=== PATIENT | female | born 1980 | race Caucasian/White ===

== ENCOUNTER 2018-04-18 08:16 | Emergency (ER) | payer SELFPAY ==
[2018-04-18] MEDS ORDERED: Ondansetron INJ* 2 MG/ML VIAL IV ONE (08:41)
[2018-04-18] MEDS ORDERED: NS 0.9% 1000 ML* 2,000 ML IV ONE (08:41)
[2018-04-18] MEDS ORDERED: Morphine INJ* 2 MG/ML 1 ML SYRINGE (TWO MG - NEW SYRINGE VERSION) IV ONE (08:41)
--- NOTE | 2018-04-18 08:59 | ED ---
Abdominal Pain/Female - HPI Summary HPI Summary: This is scribe Gomez Duffy documenting for attending Dr. Guillermo Maurer This patient is a 38 year old F presenting to [facility] with a chief complaint of 8/ 10 abd pain since 04/12/18 (but worse since last 2 days). She endorses N/V, recent travel and stay in [place], chills, and LKMP starting 04/11/18. Pt denies fever, PMHx, Rx, smoking, and substance use. SHx gastric band surgery in 2009. I, Dr. Li personally performed the services described in this documentation as scribed in my presence and it is both accurate and complete. - History of Current Complaint Chief Complaint: EDNauseaVomitDiarrh Stated Complaint: N/V Time Seen by Provider: 04/18/18 08:30 Hx Obtained From: Patient Hx Last Menstrual Period: 04/11/18 Onset/Duration: Gradual Onset, Lasting Weeks, Still Present, Worse Since - 2 days ago (04/16/18) Timing: Constant Severity Initially: Mild Severity Currently: Severe Pain Intensity: 8 Pain Scale Used: 0-10 Numeric Location: Discrete At: RLQ Radiates: No Character: Sharp Aggravating Factor(s): Nothing Alleviating Factor(s): Nothing Associated Signs and Symptoms: Positive: Nausea, Vomiting, Other: - chills. Negative: Fever Allergies/Adverse Reactions: Allergies Allergy/AdvReac Type Severity Reaction Status Date / Time No Known Allergies Allergy Verified 04/18/18 08:23 PMH/Surg Hx/FS Hx/Imm Hx Endocrine/Hematology History: Denies: Hx Sickle Cell Disease Cardiovascular History: Denies: Hx Myocardial Infarction Respiratory History: Denies: Hx Lung Cancer History: Denies: Hx Dialysis Musculoskeletal History: Denies: Hx Rheumatoid Arthritis Sensory History: Denies: Hx Legally Blind, Hx Deafness Opthamlomology History: Denies: Hx Legally Blind EENT History: Denies: Hx Deafness Neurological History: Denies: Hx CVA Psychiatric History: Denies: Hx Schizophrenia - Surgical History Surgery Procedure, Year, and Place: Gastric band 2009 Infectious Disease History: No Infectious Disease History: Denies: Traveled Outside the US in Last 30 Days - Family History Known Family History: Positive: Other - gall bladder disease, cancer - Social History Occupation: Employed Full-time Alcohol Use: Occasionally Hx Substance Use: No Substance Use Type: Reports: None Smoking Status (MU): Never Smoked Tobacco Review of Systems Positive: Chills. Negative: Fever Positive: Abdominal Pain, Vomiting, Nausea Positive: no symptoms reported All Other Systems Reviewed And Are Negative: Yes Physical Exam - Summary Physical Exam Summary: VITAL SIGNS: Reviewed. GENERAL: Patient is an obese female who is lying comfortable in the stretcher. Patient is not in any acute respiratory distress. HEAD AND FACE: No signs of trauma. No ecchymosis, hematomas or skull depressions. No sinus tenderness. EYES: PERRLA, EOMI x 2, No injected conjunctiva, no nystagmus. EARS: Hearing grossly intact. Ear canals and tympanic membranes are within normal limits. MOUTH: Oropharynx within normal limits. Dry oral mucosa NECK: Supple, trachea is midline, no adenopathy, no JVD, no carotid bruit, no c- spine tenderness, neck with full ROM. CHEST: Symmetric, no tenderness at palpation LUNGS: Clear to auscultation bilaterally. No wheezing or crackles. CVS: Regular rate and rhythm, S1 and S2 present, no murmurs or gallops appreciated. ABDOMEN: Soft, RLQ tenderness. No signs of distention. No rebound no guarding, and no masses palpated. Bowel sounds are normal. EXTREMITIES: FROM in all major joints, no edema, no cyanosis or clubbing. NEURO: Alert and oriented x 3. No acute neurological deficits. Speech is normal and follows commands. SKIN: Dry and warm, increased turgor Triage Information Reviewed: Yes Vital Signs On Initial Exam: Initial Vitals Temp Pulse Resp BP Pulse Ox 97.7 F 84 18 132/85 100 04/18/18 08:17 04/18/18 08:17 04/18/18 08:17 04/18/18 08:17 04/18/18 08:17 Vital Signs Reviewed: Yes Diagnostics - Vital Signs Vital Signs Temp Pulse Resp BP Pulse Ox 04/18/18 08:52 16 04/18/18 08:17 97.7 F 84 18 132/85 100 - Laboratory Result Diagrams: 04/18/18 08:46 04/18/18 08:46 Lab Statement: Any lab studies that have been ordered have been reviewed, and results considered in the medical decision making process. - CT A/P CT Interpretation: No Acute Changes CT Interpretation Completed By: Radiologist - NO ACUTE CT FINDINGS. NO MASS OR INFLAMMATORY CHANGES. GASTRIC LAP BANDING. Dr. Li has reviewed this report. - EKG 0847 Cardiac Rate: Bradycardia - 57 ST Segment: Normal Ectopy: None EKG Interpretation: No STEMI, nl axis Abdominal Pain Fem Course/Dx - Course Course Of Treatment: Dr. Boland released some pressure from lap band, thinks pt needs endoscopy, but since patient lives in [place], pt prefers to do the workup there. This patient is a 38-year-old female who presents to the emergency department with a chief complaint of having abdominal pain along with nausea and vomiting. Patient reports that she is unable to keep anything PO. And blood test results without any significant abnormality except for hemoglobin 8.3 hematocrit 27 and MCV 61 consistent with a hypochromic microcytic anemia. The potassium level is 3.0 and magnesium 1.7. Patient was given potassium chloride and magnesium by mouth. At this time the patient is able to tolerate by mouth. The pain has subsided. The patient was given IV fluids, Zofran and Reglan for the nausea and vomiting. She was given morphine for the pain. Abdominopelvic CT impression: No acute intra-abdominal pathology. Positive gastric lap banding. Patient reports the nausea hasnt significantly improved. I discussed the case with Dr. Boland from surgery and he came and examined the patient. He reports that he decreased the tension on the gastric lap band and the patient is feeling better. He recommends to get a endoscopy however the patient is from [place] and she wants to go back tomorrow. Therefore she reports that she will follow-up with her surgeon for follow-up visit and possibly an endoscopy. Patient will be given a prescription for Reglan and the follow-up with her surgeon. Patient is hemodynamically stable alert and 3. - Diagnoses Provider Diagnoses: Nausea & vomiting, Abdominal pain - Provider Notifications Discussed Care Of Patient With: Eduard Boland Time Discussed With Above Provider: 14:15 Instructed by Provider To: Other - Will see pt in ED. update 1515. Dr boland released some pressure from lap band, thinks pt needs endoscopy, but since patient lives in [place], pt prefers to do the workup there. Discharge - Sign-Out/Discharge Documenting (check all that apply): Patient Departure - discharge - Discharge Plan Condition: Stable Disposition: HOME Prescriptions: Metoclopramide TAB* [Reglan TAB*] 10 mg PO Q8H #15 tab Patient Education Materials: Acute Nausea and Vomiting (ED), Abdominal Pain (ED ) Referrals: [facility] [Provider Group] - 3 Days Additional Instructions: Return to the emergency department for any new or worsening symptoms. Attestations User Type: Provider - I, Dr. Li personally performed the services described in this documentation as scribed in my presence and it is both accurate and complete.
[2018-04-18 09:19] LABS: EGFR Non-African American 94.7 (>60)
[2018-04-18 09:30] LABS: Urine Appearance Clear; Urine Blood 1+ (Negative); Urine Color Yellow; Urine Ketones Negative (Negative); Urine Protein Negative (Negative); Urine Red Blood Cell Trace(0-2/hpf) (Absent); Urine Specific Gravity 1.003 (1.010-1.030); Urine Urobilinogen Negative (Negative); Urine White Blood Cell Trace(0-5/hpf) (Absent)
[2018-04-18] MEDS ORDERED: Metoclopramide IV* 5 MG/ML 2 ML VIAL IV ONE (09:32)
[2018-04-18] MEDS ORDERED: Morphine VIAL* 10 MG/ML 1 ML VIAL IV ONE (09:32)
[2018-04-18 09:33] LABS: Hematocrit 27 % (35-47); Hemoglobin 8.3 g/dl (12.0-16.0); Mean Corpuscular HGB Conc 31 g/dl (31-36); Mean Corpuscular Hemoglobin 19 pg (27-31); Mean Corpuscular Volume 61 fL (80-97); Mean Platelet Volume 8.3 um3 (7.4-10.4); Platelet Count 408 10^3/ul (150-450); Red Blood Count 4.37 10^6/ul (4.00-5.40); Red Cell Distribution Width 18 % (10.5-15); White Blood Count 5.5 10^3/ul (3.5-10.8)
[2018-04-18 10:08] LABS: ABS Basophils 0 10^3/ul (0-0.2); ABS Eosinophils 0.2 10^3/ul (0-0.6); ABS Lymphocytes 1.9 10^3/ul (1.0-4.8); ABS Monocytes 0.5 10^3/ul (0-0.8); ABS Neutrophils 2.8 10^3/ul (1.5-7.7); ABS Nucleated RBC 0 10^3/ul; Eosinophil % 4.1 % (0-6); Lymphocyte % 35.1 % (25-47); Nucleated Red Blood Cells % 0.1
[2018-04-18] MEDS ORDERED: Iohexol 300* (CONTRAST) 10 ML SDV IV ONE (10:58)
--- NOTE | 2018-04-18 11:33 | RAD ---
INDICATION: Abdominal pain. History of bariatric surgery 2009 COMPARISON: None TECHNIQUE: Axial source images were obtained from the hemidiaphragms to the symphysis pubis following administration of oral and intravenous contrast. 107 mL Omnipaque 300 was utilized. Coronal and sagittal reconstructed images were acquired. Lung bases: The lung bases are clear. Liver: The liver is normal in size. There are no masses. There is no ductal dilatation. Gallbladder: There are no calcified gallstones. There is no evidence of wall thickening or pericholecystic fluid. Spleen: The spleen is normal in size. There are no masses. Pancreas: There is no focal pancreatic mass or ductal dilatation. Adrenal glands: There is no evidence of adrenal mass. Kidneys: The kidneys are normal in size and position. There are prompt nephrograms and there is prompt excretion bilaterally. There are no renal parenchymal masses. There is no evidence of nephrolithiasis. Adenopathy: There is no evidence of adenopathy by size criteria. Fluid collections: There are no free or localized fluid collections. Vessels:There are no significant atherosclerotic changes involving the aorta. There is no focal aneurysm. The iliac vessels are normal in caliber. The IVC appears normal. GI tract: There are no acute CT bowel findings. There is gastric lap banding There is no obstruction. The stomach and small bowel appear normal. The lower GI tract is normal. The cecum, ileocecal valve, and terminal ileum appear normal. The appendix not visualized. There is no inflammatory change in the periappendiceal region. Pelvic organs: The uterus and left adnexa are normal. There are prominent vessels in the right adnexal region. This is of indeterminate significance but is believed to represent an incidental finding. The right adnexa is otherwise unremarkable. Bladder: There are no bladder masses. Abdominal and pelvic soft tissues: The extraperitoneal abdominal and pelvic soft tissues appear normal.. Osseous structures: There are no acute osseous findings. Other: None IMPRESSION: NO ACUTE CT FINDINGS. NO MASS OR INFLAMMATORY CHANGES. GASTRIC LAP BANDING.
[2018-04-18] MEDS ORDERED: Magnesium Oxide TAB* 400 MG PO ONE (12:08)
[2018-04-18] MEDS ORDERED: Potassium Chlor TAB* 20 MEQ TAB.ER PO ONE (12:08)
[2018-04-18 15:49] VITALS: BP 101/60
--- NOTE | 2018-04-18 17:42 | CONS ---
CC: Dr. Peck.* SURGICAL CONSULTATION NOTE: DATE OF CONSULT: 04/18/18 LOCATION: This patient was seen in the [facility] Emergency Department on , 03/18/18. ATTENDING PHYSICIAN: Dr. Eduard Peck. CHIEF COMPLAINT: Nausea and abdominal pain. HISTORY OF PRESENT ILLNESS: The patient is a 38-year-old female from [place], who is visiting family here in [place]; she came to the emergency room with persistent nausea, vomiting and abdominal pain. She had a lap gastric band 9 years ago in [place]; she states that 2 years ago when she was , she had nausea and the Lap-Band was emptied and has not been refilled since. For the past 2 years, she has had intermittent nausea and vomiting. She has not had followup because her bariatric surgeon and it has been difficult for her to reestablish bariatric care. She does have a primary care provider in [place]. Six months ago, she had severe abdominal pain and had a workup for gallbladder disease and she reports that the ultrasound and CAT scan were normal. She was treated for what was thought to be C. diff. She reports since she arrived in [place] 1 week ago, she has been persistently nauseated and then on Sunday of this week, she started vomiting and yesterday could not even tolerate ice chips. She reported her abdominal pain mostly in the periumbilical region as 8/10 and occurred with vomiting or dry heaving. Her last bowel movement was on 04/12/18 and was described as diarrhea. She denies any blood or mucus in the stool. She states that in the past, she did have some blood in her vomitus and had a blood transfusion in 2009. She reports acid reflux and takes Tums with some relief and has been trying to manage her diet to control those symptoms. She denies any fever or chills or dysuria. Her last menstrual period started, 04/11/18. In the emergency room, her white blood cell count was 5.5. She was noted to have microcytic anemia with a hemoglobin of 8.3, hematocrit of 27; her potassium was low at 3 and magnesium was low at 1.7. Dr. Peck and Dr. Becker reviewed the CAT scan of the abdomen , which did not reveal any acute findings or any obstruction or no inflammatory changes around the appendix; Dr. Becker commented that she might have a small hiatal hernia, but he did not note any Lap-Band slippage. Dr. Becker recommended intravenous hydration in the emergency room and a trial of clear liquids and then outpatient followup with upper endoscopy. The patient is in agreement with the plan. Dr. Peck also accessed the Lap-Band port and removed approximately 1 mL of fluid. PAST MEDICAL HISTORY: Generally healthy other than previously mentioned acid reflux; she states that she had a "hole in her heart" at , which resolved without surgery. She states that she has had anemia and hypokalemia for the past 9 years since the Lap-Band. PAST SURGICAL HISTORY: Lap gastric banding 9 years ago in [place]. MEDICATIONS: Multivitamin and occasionally iron when she remembers. ALLERGIES: No known drug allergies. FAMILY HISTORY: Parents are alive and well. Her father is diabetic. No known gastrointestinal conditions. SOCIAL HISTORY: She is here visiting her boyfriend who works in [place]; she has 3 children ages 13, 4 and 2; she has never been a smoker. 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 REVIEW OF SYSTEMS: Constitutional: No fevers or chills. She does feel tired most of the time. She has had good weight loss from the gastric banding. She was 330 pounds before the band and currently weighs 170 pounds and her weight has been essentially stable over the past year. Endocrine: No diabetes or thyroid disease. Cardiovascular: No chest pain or palpitations. Respiratory: No dyspnea on exertion. No chronic cough. Gastrointestinal: As described in history of present illness. Genitourinary: No dysuria. No history of kidney stones. Musculoskeletal: No complaints. Neurologic: No history of seizures or concussions. General: No previous anesthesia complications. No history of deep vein thrombosis or pulmonary embolism. PHYSICAL EXAM: General Survey: The patient is a 38-year-old female, well- developed, well-nourished, in no acute distress. Height 67 inches, weight 177 pounds, body mass index 27.7. Blood pressure 132/85, pulse 84 and regular, respiratory rate 18, temperature 97.7 tympanic, O2 saturation on room air 100%. Skin: Warm, dry, intact. HEENT: Benign. Neck: Supple. No cervical lymphadenopathy. Lungs: Breath sounds bilaterally clear and equal. Heart: Regular rate and rhythm. No murmurs or rubs appreciated. Abdomen: Hypoactive bowel sounds. Soft, nondistended. No guarding. No obvious masses. She reports "soreness," but is nontender to deep palpation. There is a palpable Lap -Band port in the epigastric region. Pelvic and rectal exams deferred. Extremities are warm without edema or skin ulceration. Neurologic: Alert and oriented x3. Steady gait. IMPRESSION: Dehydration due to vomiting. PLAN: As discussed with both Dr. Peck and Dr. Becker, the patient will be rehydrated with IV fluids in the emergency department. She will have a trial of clear liquids and if she tolerates the clear liquids, she will be discharged home and she will have a followup in [place] and she plans to go home tomorrow. We recommended followup with an upper endoscopy to rule out any erosive problems such as an ulcer and she will also obtain old records from her previous bariatric surgeon. TIME SPENT: 60 minutes with greater than 50% in [id number] history taking and patient counseling. BRYCE VALERIO NP [id number]/CPS #: [id number] LEAH
== END 2018-04-18 15:48 | disposition home or self-care (01) ==
LOC: ED 08:16
DX: R10.31 Right lower quadrant pain (principal); R11.2 Nausea with vomiting, unspecified; R00.1 Bradycardia, unspecified; Z98.84 Bariatric surgery status; Z80.0 Family history of malignant neoplasm of digestive organs
CPT/HCPCS: 36415; 74177; 80053; 81003; 81015; 82550; 83605; 83690; 83735; 84484; 85025; 85060; 86140; 87086; 93005; 96374; 96375; 96376; 99284; A9270-GY; J2270; J2405; J2765; Q9967

== ENCOUNTER 2018-04-19 06:26 | Inpatient (IN) | payer SELFPAY ==
[2018-04-19] MEDS ORDERED: NS 0.9% 1000 ML* 2,000 ML IV ONE (07:13)
[2018-04-19] MEDS ORDERED: Pantoprazole IV* 40 MG IV ONE (07:13)
[2018-04-19] MEDS ORDERED: Metoclopramide IV* 5 MG/ML 2 ML VIAL IV ONE (07:13)
[2018-04-19] MEDS ORDERED: Morphine INJ* 2 MG/ML 1 ML SYRINGE (TWO MG - NEW SYRINGE VERSION) IV ONE (07:13)
--- NOTE | 2018-04-19 07:25 | ED ---
Abdominal Pain/Female - HPI Summary HPI Summary: This is scribe Gomez Duffy documenting for attending Dr. Guillermo Maurer This patient is a 38 year old F presenting to [facility] with a chief complaint of increasing abd pain for 4 days (since 04/15/18). Pt was in the ED for similar sx yesterday, 04/18/18, and was discharged after having tension released on her gastric band. Pt endorses N/V. Pt took Reglan around 2000 and her N/V resolved and she was OK until the meds wore off by 0000, and her sx worsened. She took another dose of Reglan, slept for 1 hour, and then and was awake for rest of night. Pt denies BM, ability to keep PO down. I, Dr. Li personally performed the services described in this documentation as scribed in my presence and it is both accurate and complete. - History of Current Complaint Chief Complaint: EDAbdPain Stated Complaint: ABD PAIN Time Seen by Provider: 04/19/18 06:51 Hx Obtained From: Patient Hx Last Menstrual Period: 04/11/18 Onset/Duration: Sudden Onset, Lasting Days, Still Present Timing: Constant Severity Initially: Moderate Severity Currently: Severe Pain Intensity: 10 Pain Scale Used: 0-10 Numeric Location: Epigastric Radiates: No Aggravating Factor(s): Nothing Alleviating Factor(s): Medications - Reglan Associated Signs and Symptoms: Positive: Nausea, Vomiting. Negative: Fever, Blood in Stool, Diarrhea Allergies/Adverse Reactions: Allergies Allergy/AdvReac Type Severity Reaction Status Date / Time No Known Allergies Allergy Verified 04/18/18 08:23 Home Medications: Home Medications Multivitamins/Minerals TAB* [Theragran/minerals TAB*] 1 tab PO DAILY 04/19/18 [ History Confirmed 04/19/18] PMH/Surg Hx/FS Hx/Imm Hx Endocrine/Hematology History: Denies: Hx Sickle Cell Disease Cardiovascular History: Denies: Hx Myocardial Infarction Respiratory History: Denies: Hx Lung Cancer GI History: Reports: Hx Ulcer - gastric History: Denies: Hx Dialysis Musculoskeletal History: Denies: Hx Rheumatoid Arthritis Sensory History: Denies: Hx Legally Blind, Hx Deafness, Hx Hearing Aid Opthamlomology History: Denies: Hx Legally Blind EENT History: Denies: Hx Deafness, Hx Hearing Aid Neurological History: Denies: Hx CVA Psychiatric History: Denies: Hx Autism, Hx Schizophrenia - Surgical History Surgery Procedure, Year, and Place: Gastric band 2010 Infectious Disease History: No Infectious Disease History: Denies: Traveled Outside the US in Last 30 Days - Family History Known Family History: Positive: Other - gall bladder disease, cancer - Social History Alcohol Use: Occasionally Hx Substance Use: No Substance Use Type: Reports: None Smoking Status (MU): Never Smoked Tobacco Review of Systems Negative: Fever Positive: Abdominal Pain, Vomiting, Nausea. Negative: Diarrhea Positive: no symptoms reported All Other Systems Reviewed And Are Negative: Yes Physical Exam - Summary Physical Exam Summary: VITAL SIGNS: Reviewed. GENERAL: Patient is a well-developed and nourished female who is lying comfortable in the stretcher. Patient is not in any acute respiratory distress. HEAD AND FACE: No signs of trauma. No ecchymosis, hematomas or skull depressions. No sinus tenderness. EYES: PERRLA, EOMI x 2, No injected conjunctiva, no nystagmus. EARS: Hearing grossly intact. Ear canals and tympanic membranes are within normal limits. MOUTH: Oropharynx within normal limits. Dry oral mucosa NECK: Supple, trachea is midline, no adenopathy, no JVD, no carotid bruit, no c- spine tenderness, neck with full ROM. CHEST: Symmetric, no tenderness at palpation LUNGS: Clear to auscultation bilaterally. No wheezing or crackles. CVS: Regular rate and rhythm, S1 and S2 present, no murmurs or gallops appreciated. ABDOMEN: Soft, tenderness in epigastric area. No signs of distention. No rebound , no guarding, and no masses palpated. Bowel sounds are normal. EXTREMITIES: FROM in all major joints, no edema, no cyanosis or clubbing. NEURO: Alert and oriented x 3. No acute neurological deficits. Speech is normal and follows commands. SKIN: Dry and warm Triage Information Reviewed: Yes Vital Signs On Initial Exam: Initial Vitals Temp Pulse Resp BP Pulse Ox 98.9 F 75 18 134/86 100 04/19/18 06:30 04/19/18 06:30 04/19/18 06:30 04/19/18 06:30 04/19/18 06:30 Vital Signs Reviewed: Yes Diagnostics - Vital Signs Vital Signs Temp Pulse Resp BP Pulse Ox 04/19/18 06:38 94 136/74 100 04/19/18 06:30 98.9 F 75 18 134/86 100 - Laboratory Result Diagrams: 04/21/18 04:56 04/21/18 04:56 Lab Statement: Any lab studies that have been ordered have been reviewed, and results considered in the medical decision making process. Abdominal Pain Fem Course/Dx - Course Course Of Treatment: This patient is a 38-year-old female who presents to the emergency department with a chief complaint of having abdominal pain started with nausea and vomiting. The patient was seen yesterday in the emergency department for the symptoms results, she was treated and felt better. The patient was able to tolerate by mouth here today however today the symptoms worsen. Therefore she decided to come to the emergency department for further workup and management. Patient has history of a gastric lap band and yesterday Dr. Peck remove some fluid from the band and the patient felt better. However he recommended to do an anoscopy to rule out any type of ulcers. Declined rectal exam. Will send occult blood testing when she has a bowel movement. Test results CBC shows an hemoglobin of 7.40 with hematocrit 24 which is less than yesterday. MCV is 62. Sodium is 140, potassium 30, glucose of 105, magnesium 1.8 and urinalysis is negative for UTI. Abdominopelvic CT done yesterday showed no acute intra-abdominal pathology. Today in the ED course and the patient was given IV fluids for rehydration, the patient is given potassium and magnesium for the hypokalemia and hypomagnesemia. The patient also was given morphine for the pain and Reglan for the nausea and vomiting. She continues to have nausea vomiting therefore the patient was given Zofran IV. At this time I consulted with Dr. Gunn from surgery and he recommends for the patient to be admitted to the hospitalist and they will consult. Discussed the case with Dr. Valente who accepted the patient for admission. Patient continues to be hemodynamically stable alert and oriented 3. - Diagnoses Provider Diagnoses: Intractable vomiting, Upper abdominal pain, Anemia - Provider Notifications Discussed Care Of Patient With: Michael Gunn Time Discussed With Above Provider: 11:22 Instructed by Provider To: Other - this pt needs nothing surgical, admission is a matter of rehydrating and controlling N/V. Discharge - Sign-Out/Discharge Documenting (check all that apply): Patient Departure - Discharge Plan Condition: Stable Disposition: ADMITTED TO [facility] - Billing Disposition and Condition Condition: STABLE Disposition: Admitted to [facility] Consult Consult: 1206 Dr. Valente: Accepts admission Attestation Statement User Type: Provider - I, Dr. Li personally performed the services described in this documentation as scribed in my presence and it is both accurate and complete.
[2018-04-19 07:45] LABS: ABS Basophils 0 10^3/ul (0-0.2); ABS Eosinophils 0.2 10^3/ul (0-0.6); ABS Lymphocytes 1.4 10^3/ul (1.0-4.8); ABS Monocytes 0.4 10^3/ul (0-0.8); ABS Neutrophils 2.1 10^3/ul (1.5-7.7); ABS Nucleated RBC 0 10^3/ul; Eosinophil % 4.2 % (0-6); Hematocrit 24 % (35-47); Hemoglobin 7.4 g/dl (12.0-16.0); Lymphocyte % 34.6 % (25-47); Mean Corpuscular HGB Conc 31 g/dl (31-36); Mean Corpuscular Hemoglobin 19 pg (27-31); Mean Corpuscular Volume 62 fL (80-97); Mean Platelet Volume 8.1 um3 (7.4-10.4); Nucleated Red Blood Cells % 0; Platelet Count 341 10^3/ul (150-450); Red Blood Count 3.92 10^6/ul (4.00-5.40); Red Cell Distribution Width 18 % (10.5-15); White Blood Count 4.1 10^3/ul (3.5-10.8)
[2018-04-19 07:59] LABS: EGFR Non-African American 133.4 (>60)
[2018-04-19] MEDS ORDERED: Potassium Chlor TAB* 20 MEQ TAB.ER PO ONE (09:44)
[2018-04-19] MEDS ORDERED: Magnesium Sulfate 1 GM IV* 1 GM/100 ML BAG IV ONE (09:44)
[2018-04-19] MEDS ORDERED: NS 0.9% w/ 20 Meq KCL 1000 ML* 1,000 ML IV SCH (10:00)
[2018-04-19] MEDS ORDERED: Ondansetron ODT TAB* 4 MG PO ONE (10:59)
[2018-04-19] MEDS ORDERED: Ondansetron ODT TAB* 4 MG ONE (11:00)
[2018-04-19] MEDS ORDERED: Magnesium Sulfate 2 GM IV* 2 GM/50 ML BAG IVPB ONE (12:31)
[2018-04-19] MEDS ORDERED: HYDROmorphone INJ* 1 MG/ML CARPUJECT SYRINGE IV SLOW PU PRN (12:31)
[2018-04-19] MEDS ORDERED: Pantoprazole IV* 40 MG IV SCH (13:00)
[2018-04-19] MEDS ORDERED: Midazolam* 1 MG/ML 10 ML VIAL (10 MG) ONE (13:35)
[2018-04-19] MEDS ORDERED: fentaNYL* 50 MCG/ML 2 ML VIAL (100 MCG VIAL) ONE (13:35)
[2018-04-19] MEDS ORDERED: Ondansetron INJ* 2 MG/ML VIAL ONE (13:35)
[2018-04-19] MEDS: PROCHLORPERAZINE INJ 5 MG/ML 2 ML VIAL IV PRN (15:47)
[2018-04-19] MEDS: NS 0.9% 1000 ML* 1,000 ML IV SCH (15:48)
[2018-04-19] MEDS: KCL 10 MEQ/50 ML IVPREMIX* 10 MEQ/50 ML BAG IV SCH ×3 (15:51→19:47)
[2018-04-19] MEDS ORDERED: HYDROmorphone INJ* 0.5 MG/0.5 ML SYRINGE ONE (16:03)
--- NOTE | 2018-04-19 16:18 | HP ---
CC: Dr. Gunn; Dr. Son; Lavonne Gianna Mcfadden, phone number [phone]* HISTORY AND PHYSICAL: DATE OF ADMISSION: 04/19/18 PRIMARY CARE PROVIDER: Lavonne Mcfadden. Phone number [phone]. MY ATTENDING PHYSICIAN WHILE IN THE HOSPITAL: Dr. Latasha Purcell* (report dictated by Harley Tanner NP). CONSULTING A CLASS LINEMAN: Dr. Son. CONSULTING SURGEON: Dr. Gunn. CHIEF COMPLAINT: 1. Nausea. 2. Abdominal pain. 3. Diarrhea. HISTORY OF PRESENT ILLNESS: Mrs. Andrade is a 38-year-old female patient who 9 years ago had a lap band procedure done. She said she had 1 episode of diarrhea on Sunday and then subsequently since throughout the weekend she really has not been able to take good p.o. intake. She has been able to keep fluids down throughout the weekend, but she has just been nauseous having abdominal cramping, lower pain. She has been having issues with nausea and vomiting throughout the weekend. She was able to keep food down. She felt okay on Sunday. She thought that she would try some soup, add chillies. She tried the soup there and then just vomited up and ever since then she has been unable to keep anything down. She tried sitting in a warm hot tub to see if that would help her. She said the warm did help, but as soon as she got out, she felt worse. She denied any marijuana usage. She says that the pain had been unrelenting. She had just the nausea and vomiting. No more diarrhea. She said that she has not had a bowel movement since Sunday. She said that she has not had any fevers or chills. She came into the ED yesterday, was evaluated. She has the lap band from 9 years ago. The fluid was removed by our surgical team, but despite all of this she still continued to have significant symptoms. The patient was evaluated again in the ED, because she just was not getting any better. We were asked to evaluate for admission due to the intractable nausea and vomiting and she denied having any chest pain or shortness of breath. PAST MEDICAL HISTORY: Significant for: 1. GERD. 2. Anemia. 3. Hypokalemia. PAST SURGICAL HISTORY: She has had a lap band. HOME MEDICATIONS: Include; 1. A multivitamin once a day. 2. She was just prescribed Reglan 10 mg p.o. every 8 hours yesterday. ALLERGIES TO MEDICATIONS: Include no known drug allergies. FAMILY HISTORY: She says her mother is healthy. Father had a history of diabetes. SOCIAL HISTORY: She does not smoke, rarely drinks alcohol. She does not have a surrogate decision maker and she has 3 children. 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 She is from [place] visiting her boyfriend. REVIEW OF SYSTEMS: There is no documented fever. Denies having any significant weight change. There was no double vision. There is no ear discharge. Denied having any rhinorrhea. There was no sore throat. There was no thyroid enlargement. She denied any chest pain. No orthopnea. No nocturnal dyspnea. There is abdominal pain per my HPI. There is nausea and vomiting. There was one episode of diarrhea. There is no dysuria, no frequency , no seizure, no loss of consciousness, no pruritus, no skin ulceration. Review of 14 systems completed, all others negative. PHYSICAL EXAMINATION GENERAL: At this time, Mrs. Andrade is a 38-year-old female patient. She is sitting in the ED stretcher. She does not appear to be in any acute distress. VITAL SIGNS: Blood pressure 133/90, pulse 51, respirations were 18, O2 sat 100 % on room air, and temperature 98.9. HEENT: Head, atraumatic and normocephalic. Eyes, EOMs are intact. Sclerae anicteric and not pale. NECK: Supple. Throat; oral mucosa appears to be moist. No oropharyngeal erythema. LUNGS: Clear to auscultation. No wheezes, rales, or rhonchi. HEART: Sounds S1 and S2. Regular rate and rhythm. No murmurs, rubs, or gallops. ABDOMEN: Soft, flat, bowel sounds were present. There was tenderness in the left lower and right lower quadrant. EXTREMITIES: Pulses were 2+ throughout. She had no peripheral edema. She is moving all 4 extremities with 5/5 strength. NEUROLOGIC: The patient is awake, alert. She is oriented x3. No gross focal deficits. SKIN: Intact. LABORATORY DATA: Today WBC of 4.1, RBC of 3.92, hemoglobin of 7.4, hematocrit of 24, platelet count of 341. The sodium was 140, potassium was 3, chloride of 106, bicarb 28, BUN 10, creatinine 0.52, glucose 105, lactic 0.9, calcium 8.8, mag 1.8, total bili 1.1, AST 6, ALT 8, alk phos 30, CRP less than 1. Albumin 3.6, lipase normal, beta hCG is negative. She did have a urine done yesterday which showed low specific gravity, 1+ blood, trace leukocyte esterase, present squamous epithelial cells, present hyaline casts. She did have an abdominal pelvis CT scan just done yesterday as well which showed: Impression: No acute CT findings. No mass or inflammatory changes. She did have an EKG done yesterday, showed sinus bradycardia with a rate of 57. No ST elevations or T-wave inversions. Old medial records were reviewed. ASSESSMENT AND PLAN: Mrs. Andrade is a 38-year-old female patient coming into the ED today with complaints of a week's worth of nausea, vomiting. She had one episode of diarrhea, but the nausea, vomiting, and abdominal pain has been getting progressively worse particularly over the last 72 hours. We were asked to evaluate for admission. She will be admitted under observation status for: 1. Abdominal discomfort with nausea and vomiting. Etiology is unclear. Question possible gastritis either related from mechanical issue due to the lap band being too tight or possibly the patient having an underlying infection, although this seems unlikely without having the diarrhea. My plan will be continue with supportive care, p.r.n. pain medications, Zofran, Compazine had been ordered, IV fluids replaced with electrolytes. I have consulted GI and Surgery, both of which will be seeing the patient. The plan is to undergo EGD later today to evaluate for any ulcers. I have placed her empirically on a PPI therapy. 2. Gastroesophageal reflux disease. Continue PPI therapy. 3. Hypokalemia. I am actively replacing this. 4. Hypomagnesemia. I am replacing this as well. 5. DVT prophylaxis. I have placed her on SCDs. 6. Code status is full code. 7. Fluids, electrolytes, and nutrition. She can have a normal saline at 125 cc an hour after scoping, we can consider trying a clear liquid diet. TIME SPENT: Time spent on the admission 60 minutes, greater than half the time spent [id number] with the patient obtaining my history and physical. The other half the time spent going over the plan of care with the patient, implementing the plan of care. I discussed the plan of care with my attending Dr. Purcell. She is in agreement. HARLEY TANNER, CARMENCITA [id number]/[facility] #: [id number] LEAH
[2018-04-19] MEDS ORDERED: KCL 10 MEQ/50 ML IVPREMIX* 10 MEQ/50 ML BAG ONE (19:45)
--- NOTE | 2018-04-19 20:48 | CONS ---
CC: [facility] CONSULTATION REPORT: DATE OF CONSULT: 04/19/18 REFERRING PROVIDER: Harley Tanner NP, Hospitalist. REASON FOR CONSULT: Nausea, vomiting, and abdominal pain. HISTORY OF PRESENT ILLNESS: Ms. Stephanie Andrade is a 38-year-old woman who is visiting here from [place] . She initially was seen in the emergency room in Surgical consultation yesterday, 04/18/18, when sh geni presented with 4 to 5 days of periumbilical discomfort with profuse nausea and vomiting. She has a history of laparoscopic gastric banding that was placed in [place] 9 years ago. Yesterday, she underwent a CAT scan, which showed a hiatal hernia with mildly dilated distal esophagu s, but the band appeared to be patent and no other acute abnormalities were noted. At that time, the band was completely deflated and saline was removed. She was discharged home last night after she t olerated liquids in the emergency room, however last night she developed profuse nausea and vomiting through the night and abdominal pain, presented back to the emergency room today. Today, she is being admitted to the hospitalist service for IV hydration and management. Gastroenter ology and Surgical consultations have been obtained. She has had no change in bowel habits, as a matter of fact she has been constipated. She has had no fevers, shakes, or chills. PAST MEDICAL HISTORY: 1. Gastroesophageal reflux disease. 2. Obesity. 3. Anemia. 4. Hypokalemia. PAST SURGICAL HISTORY: Laparoscopic band placement. MEDICATIONS: Include multivitamins. ALLERGIES: She has no known drug allergies. SOCIAL HISTORY: She does not smoke. She rarely drinks alcohol. She has 3 young children. 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 REVIEW OF SYSTEMS: Cerebrovascular: No dizziness or visual disturbances. Cardiovascular: No chest pain or shortness of breath. Pulmonary: No wheezing or hemoptysis. GI: As per above. : No urg ency or hematuria. PHYSICAL EXAM: Temperature 98, pulse 62, blood pressure 94/56, respirations 16. In general, she is a well-developed, well-nourished female, who appeared to be in no apparent distress. She is awake, al ert, and conversive and very pleasant. Oral mucosa was slightly dry. Lungs were clear to auscultati on with normal respiratory effort. Heart was regular rate and rhythm without murmurs, rubs, or alba ps. Abdomen is soft and nondistended. She has laparoscopic incisions, well healed in the upper abdom en. There is a palpable port in the epigastric area without signs of redness or tenderness. LABORATORY DATA: Laboratory values included a normal white count of 4.1 with a hemoglobin of 7.4 wit h an MCV of 62. Electrolytes were within normal limits other than low potassium. Total bilirubin 1. 1 and total protein is 6.3. IMPRESSION: Persistent nausea and vomiting over the past week in a patient who has had a lap band pl aced 9 years ago. She states over the past several months, she has had some intermittent discomfort, but her symptoms have worsened. CT scan as above. PLAN: 1. The patient is going to be admitted to the hospitalist service for IV hydration, will be kept n.p .o. 2. Proton-pump inhibitors will be started. 3. She has undergone an upper endoscopy with Dr. Son from Gastroenterology. I will review these results with her. This shows fairly severe distal esophagitis narrowing at the band site and a bob l distal stomach. 4. I discussed her care with Dr. Becker who will see her tomorrow. Most likely plan will be remova l of the laparoscopic band, but we will await his decision as to timing and any other evaluation that may be indicated. 5. We will follow her closely with you. [id number]/[facility] #: [id number]
[2018-04-19] MEDS: Pantoprazole IV* 40 MG IV SCH (21:04)
[2018-04-20] MEDS: NS 0.9% 1000 ML* 1,000 ML IV SCH ×4 (01:03→04:15)
--- NOTE | 2018-04-20 02:20 | PRO ---
CC: Harley Tanner NP; Dr. Latasha Purcell; Dr. Ce Son GASTROENTEROLOGY OPERATIVE REPORT: DATE OF PROCEDURE: 04/19/18 OPERATIVE PROCEDURE: Esophagogastroduodenoscopy to second portion of duodenum OPERATING COST CLERK: Ce Son DO ANESTHESIA: 1. Midazolam 5 mg IV. 2. Fentanyl 75 mcg IV. OTHER MEDICATIONS: 1. Zofran 4 mg IV. HISTORY OF PRESENT ILLNESS: Stephanie is a 38-year-old female with a history GERD and gastric Lap-Band placed 9 years ago, who presents to [facility] ER with intractable nausea and vomiting for 7 days. She is currently not on PPI therapy for history of GERD. Her last endoscopy was 9 years ago after her gastric Lap-Band. Yesterday, she did have some fluid removed from her Lap-Band, which did not help alleviate her symptoms. PREOPERATIVE DIAGNOSES: 1. Intractable nausea, vomiting. 2. History of gastric Lap-Band. POSTOPERATIVE DIAGNOSES: 1. Normal-appearing mid and proximal esophagus. 2. Severe distal esophagitis with cobblestoning and biopsies. 3. Tight Gastric Lap-Band noted at 40 cm from the incisors. 4. Irregular-appearing Z-line at 35 cm from the incisors. 5. Minimal antral gastritis with CLOtest to rule out Helicobacter pylori. 6. Normal-appearing duodenum to the second portion with biopsies to rule out celiac disease. RECOMMENDATIONS: 1. We will follow up with path results. 2. We will start the patient on pantoprazole therapy 40 mg IV twice daily. Carafate 1 g b.i.d. may be added once she is able to tolerate oral medications. 3. Discussed with primary team, Jonny Tanner NP and surgeon Dr. Gunn. Dr. Arredondo will likely remove lap band next week as this is likely the cause of patient's current symptoms. 4. Further recommendations will be provided as the patient's clinical course progresses. DESCRIPTION OF PROCEDURE: Esophagogastroduodenoscopy was explained in detail to the patient. The risks, benefits, complications, alternatives, possibilities of missed lesions were explained and understood. Complications included, but were not limited to reaction to anesthesia, aspiration, increased risk of bleeding, infection and perforation. All questions were answered. The patient demonstrated understanding of the conversation. Informed consent was obtained. Next, the patient was brought to the endoscopy suite, placed in the left lateral recumbent position, where blood pressure, cardiac, and oxygen monitors were applied. The patient was found to be a fit candidate for moderate anesthesia. After adequate IV sedation was achieved, a bite-block was placed. Next, a standard adult Olympus endoscope was inserted per os under direct visualization to the first and second portion of the duodenum. These areas were grossly normal appearing. Cold forceps biopsies were obtained to rule out celiac disease. Further withdrawal into the gastric lumen revealed very minimal erythema in the antrum consistent with minimal antral change gastritis. A CLOtest was performed to rule out H. pylori. On retroflexion, the patient had a tight gastric cardia sling likely from the gastric Lap-Band. The Lap-Band was noted at 40-cm from the incisors and seen causing significantly narrowing the lumen of the esophagus creating a hiatal hernia- type sac from the distal esophagus to the tight junction from gastric lap band. Further withdrawal into the distal esophagus revealed severe LA grade D distal esophagitis with cobblestoning. Cold forceps biopsies were obtained from this area. The Z-line appeared to be irregular located at 35 cm. The rest of the tubular esophagus was normal appearing. Air was then removed from the patient. Endoscope was removed from the patient. The patient tolerated the procedure well. There were no immediate complications. After a period of observation, the patient was transferred back the to the medical floor in stable condition. Thank you, Harley Tanner, for allowing us to participate in the care of your patient. If you should have any further questions or concerns, please do not hesitate to contact us. [id number]/[facility] #: [id number] LEAH
[2018-04-20] MEDS: HYDROmorphone INJ* 0.5 MG/0.5 ML SYRINGE IV SLOW PU PRN ×5 (03:41→23:18)
--- NOTE | 2018-04-20 04:58 | CONS ---
CC: Harley Tanner NP; Dr. Gunn; Ce Son DO GASTROENTEROLOGY CONSULTATION REPORT: DATE OF CONSULT: 04/19/18 HOSPITAL PROVIDER: Harley Tanner NP PRIMARY CARE PROVIDER: Lavonne Mcfadden NP REASON FOR CONSULT: Intractable nausea, vomiting. HISTORY OF PRESENT ILLNESS: Stephanie is a 38-year-old female with a previous history of Lap-Band procedure done approximately 9 years ago, who has been visiting from [place] approximately 1 week ago. She states she had 1 episode of diarrhea last week and since then, she has not had a bowel movement due to decreased oral intake. She does admit to a general history of chronic constipation. She states she has been feeling significantly nauseous with intermittent emesis over the last week. She also admits to lower abdominal cramping. She has been unable to keep any food down for approximately a week, which prompted her to present herself to the emergency room. These symptoms are similar to previous episodes over the last year but are more severe this past week. She had been told previously from a variety of physicians that she may need to have her Lap-Band removed due to persistent symptoms. She is not on antacid therapy at home. She does admit to marijuana use and did use it once 3 days ago in an attempt to alleviate her symptoms and prior to this, she last used 7 months ago. She has had a previous endoscopy shortly after her Lap- Band was placed nine years ago. She does not recall the results of this test. She denies prior colonoscopy. She denies family history of gastrointestinal malignancies. She denies rectal bleeding, melena, and hematemesis. She was admitted for rehydration and further evaluation of the patient's Lap-Band as well as her intractable vomiting. Of note, she did have her Lap-Band evaluated from a surgeon yesterday and some fluid was removed from the Lap-Band; however, her symptoms did not improve with this. PAST MEDICAL HISTORY: 1. GERD. 2. Iron-deficiency anemia. 3. Hypokalemia. PAST SURGICAL HISTORY: Lap-Band approximately 9 years ago. HOME MEDICATIONS: Multivitamin daily. ALLERGIES TO MEDICATIONS: No known allergies. FAMILY HISTORY: Denies history of gastrointestinal malignancies. SOCIAL HISTORY: She denies tobacco use. Rarely drinks alcohol. Occasional marijuana use. Visiting from [place]. REVIEW OF SYSTEMS: On a 14-point scale have been reviewed. All pertinent positives and negatives have been noted above in the HPI. PHYSICAL EXAM: Vital Signs: Temperature 98, pulse 62, respirations 16, blood pressure 94/56, oxygenation 98% on room air. Generally, the patient is alert and oriented x3. Slightly pale. HEENT: Normocephalic, atraumatic. Extraocular muscles are intact. Anicteric sclerae bilaterally. Cardiovascular Exam: Regular rate and rhythm. Pulmonary Exam: Clear to auscultation bilaterally. Abdominal Exam: Obese, positive bowel sounds, soft, nontender, nondistended. No rebound, guarding, or rigidity. Lap-Band is noted. Extremities: No clubbing, cyanosis, or edema. Warm to touch. Neurological Exam : No gross focal deficits are appreciated at this time. DIAGNOSTIC STUDIES/LAB DATA: WBC is 4.1, hemoglobin 7.4, hematocrit 24, MCV 62 , platelets 341. Sodium 140, potassium 3.0, chloride 106, CO2 of 28, anion gap 6, BUN 10, creatinine 0.52, lactic acid 0.9, calcium 8.8, magnesium 1.8. Total bilirubin 1.10, AST 6, ALT 8, alkaline phosphatase 31. CRP less than 1.0. Total protein 6.3, albumin 3.6, lipase 11. Beta HCG less than 0.60. ASSESSMENT AND PLAN: Stephanie is a 38-year-old female with a previous history GERD and a Lap-Band that was placed 9 years ago. She has been experiencing recurrent symptoms of intractable nausea, vomiting, and abdominal discomfort over the last year. Over the last week, her symptoms became more severe. She did present yesterday for removal of fluid from her Lap-band, which did not seem to alleviate her symptoms. She has been unable to keep fluid down for the last week and was found to be hypovolemic on admission with hypokalemia and hypomagnesemia. She denies sick contacts at this time. She is not on antacid therapy as an outpatient despite her previous history of gastroesophageal reflux disease. Given these severe symptoms, we will perform an endoscopy for further evaluation today and to further evaluate Lap-band. The patient is to maintain n.p.o. status. We will start her pantoprazole therapy 40 mg IV daily for now. She will be given a dose of Zofran prior to an endoscopy due to recurrent emesis here in the endoscopy department. Further recommendations will be provided as the patient's clinical course progresses. Thank you, Harley Tanner, for allowing us to participate in the care of your patient. If you should have any further questions or concerns, please do not hesitate to contact us. [id number]/[facility] #: [id number] LEAH
[2018-04-20 06:26] LABS: INR 1.18 (0.77-1.02)
[2018-04-20 06:30] LABS: ABS Basophils 0 10^3/ul (0-0.2); ABS Eosinophils 0.2 10^3/ul (0-0.6); ABS Lymphocytes 1.4 10^3/ul (1.0-4.8); ABS Monocytes 0.3 10^3/ul (0-0.8); ABS Neutrophils 1.8 10^3/ul (1.5-7.7); ABS Nucleated RBC 0 10^3/ul; Eosinophil % 4.8 % (0-6); Hematocrit 21 % (35-47); Hemoglobin 6.4 g/dl (12.0-16.0); Lymphocyte % 37.9 % (25-47); Mean Corpuscular HGB Conc 31 g/dl (31-36); Mean Corpuscular Hemoglobin 19 pg (27-31); Mean Corpuscular Volume 62 fL (80-97); Mean Platelet Volume 8.4 um3 (7.4-10.4); Nucleated Red Blood Cells % 0; Platelet Count 270 10^3/ul (150-450); Red Blood Count 3.35 10^6/ul (4.00-5.40); Red Cell Distribution Width 18 % (10.5-15); White Blood Count 3.6 10^3/ul (3.5-10.8)
[2018-04-20 07:20] LABS: Hematocrit 21 % (35-47); Hemoglobin 6.4 g/dl (12.0-16.0)
[2018-04-20] MEDS: Pantoprazole IV* 40 MG IV SCH ×2 (08:49→22:06)
[2018-04-20] MEDS: Ondansetron INJ* 2 MG/ML VIAL IV PRN ×2 (09:29→18:30)
--- NOTE | 2018-04-20 10:11 | PN ---
Subjective Date of Service: 04/20/18 Interval History: Pt c/o no BM x 7 days, no flatus in the past 2-3 days. abd pian described as severe, colicky in b/l lower quadrants of abd, resolving after pain meds, now c/ o mild tenderness in lower abd H/o blood transfusion in 2009 and severe iron deff anemia on IV iron as outpatient in the past , then on PO iron supplement which pt stopped due to GI intolerance. H/o menorrhagia Objective Active Medications: Hydromorphone HCl (Dilaudid Inj*) 0.5 mg IV SLOW PU Q4H PRN PRN Reason: PAIN Last Admin: 04/20/18 08:46 Dose: 0.5 mg Sodium Chloride (Ns 0.9% 1000 Ml*) 1,000 mls @ 125 mls/hr IV PER RATE [facility] Last Admin: 04/20/18 04:15 Dose: 125 mls/hr Sodium Chloride (Ns 0.9% 1000 Ml*) 1,000 mls @ 0 mls/hr IV WIDE OPEN [facility] Stop: 04/21/18 02:01 Last Admin: 04/20/18 03:09 Dose: 999 mls/hr Ondansetron HCl (Zofran Inj*) 4 mg IV Q6H PRN PRN Reason: NAUSEA Last Admin: 04/20/18 09:29 Dose: 4 mg Pantoprazole Sodium (Protonix Iv*) 40 mg IV Q12H [facility] Last Admin: 04/20/18 08:49 Dose: 40 mg Prochlorperazine Edisylate (Compazine Inj*) 10 mg IV Q6H PRN PRN Reason: NAUSEA/VOMITING Last Admin: 04/19/18 15:47 Dose: 10 meq Vital Signs - 8 hr 04/20/18 04/20/18 04/20/18 03:24 03:41 04:45 Temperature 98.1 F Pulse Rate 89 Respiratory 16 18 16 Rate Blood Pressure 105/60 (mmHg) O2 Sat by Pulse 99 Oximetry 04/20/18 04/20/18 04/20/18 07:37 08:00 08:46 Temperature 97.6 F Pulse Rate 60 Respiratory 18 18 18 Rate Blood Pressure 103/55 (mmHg) O2 Sat by Pulse 98 Oximetry Oxygen Devices in Use Now: None Appearance: 38 yo f in nAD, aAOx3 Eyes: No Scleral Icterus, PERRLA Ears/Nose/Mouth/Throat: NL Teeth, Lips, Gums, Mucous Membranes Moist Neck: NL Appearance and Movements; NL JVP, Trachea Midline Respiratory: Symmetrical Chest Expansion and Respiratory Effort, Clear to Auscultation Cardiovascular: NL Sounds; No Murmurs; No JVD, RRR Abdominal: - - mild b/l lower Q's tenderness, no rebound, no guarding, decreased BS Lymphatic: No Cervical Adenopathy Extremities: No Edema, No Clubbing, Cyanosis Skin: No Rash or Ulcers, No Nodules or Sclerosis Neurological: Alert and Oriented x 3, NL Muscle Strength and Tone Result Diagrams: 04/20/18 07:05 04/20/18 06:02 Microbiology and Other Data: Microbiology 04/19/18 14:07 CLOtest - Final Gastric Antrum Assess/Plan/Problems-Billing Assessment: 38 yo F with h/o lap band in 2006 and hospitalization for dehydration and anemia in 2009 and in the beginning 2018 in OR presented with no BM x 7 days, intractable N/V and lower abd pain. EGD sgows severe espohagitis - Patient Problems (1) Esophagitis determined by endoscopy Comment: cont NPO prior to Dr. Stone' evaluation cont IV Protonix may need gastric band removed (2) Dehydration Comment: transient low BP at night, ow improved with IVF cont IVF when NPO (3) Microcytic anemia Comment: H/o blood transfusion in 2009 and severe iron deff anemia on IV iron as outpatient in the past , then on PO iron supplement which pt stopped due to GI intolerance. H/o menorrhagia today hb down t 6.4 -suspect hemodilution, no signs or symptoms of bleeding will transfuse 1 u PRBC, if tolerated OK will start iron IV infusions (4) DVT prophylaxis Comment: low risk, SCD's Status and Disposition: OBV will be changed to inpatient
--- NOTE | 2018-04-20 11:07 | PN ---
Progress Note - Progress Note Date of Service: 04/20/18 SOAP: Subjective: Chart and radiology images reviewed. She had EGD yesterday noting severe erosive GERD. She is better today with no emesis. She states she had wanted her LAP-BAND removed 6 months ago when she had a similar episode of dysphagia/ dry heaves. Objective: Vital Signs Temp 97.9 F 04/20/18 10:17 Pulse 68 04/20/18 10:17 Resp 15 04/20/18 10:17 BP 110/62 04/20/18 10:17 Pulse Ox 96 04/20/18 10:17 Gen: NAD Abd: obese, soft; port palpated in upper abdomen; non-tender. Intake & Output 04/19/18 04/20/18 04/20/18 18:59 06:59 18:59 Intake Total 55 5200 685 Output Total 275 1100 0 Balance -220 4100 685 Weight 177 lb Intake: IV Fluids 4950 685 NS 2975 685 IVPB 55 250 Potassium 55 100 Oral 0 0 Output: Urine 275 1100 0 Laboratory Results - last 24 hr 04/20/18 04/20/18 04/20/18 06:02 06:02 06:02 WBC 3.6 RBC 3.35 L Hgb 6.4 L* Hct 21 L MCV 62 L MCH 19 L MCHC 31 RDW 18 H Plt Count 270 MPV 8.4 Neut % (Auto) 49.1 Lymph % (Auto) 37.9 [place] % (Auto) 7.5 H Eos % (Auto) 4.8 Baso % (Auto) 0.7 Absolute Neuts (auto) 1.8 Absolute Lymphs (auto) 1.4 Absolute Monos (auto) 0.3 Absolute Eos (auto) 0.2 Absolute Basos (auto) 0 Absolute Nucleated RBC 0 Nucleated RBC % 0 INR (Anticoag Therapy) 1.18 H Sodium 139 Potassium 3.6 Chloride 113 H Carbon Dioxide 23 Anion Gap 3 BUN 5 L Creatinine 0.39 L Est GFR ( Amer) 225.0 Est GFR (Non-Af Amer) 186.0 BUN/Creatinine Ratio 12.8 Glucose 85 Calcium 7.6 L Blood Type Antibody Screen Crossmatch 04/20/18 04/20/18 06:02 07:05 WBC RBC Hgb 6.4 L* Hct 21 L MCV MCH MCHC RDW Plt Count MPV Neut % (Auto) Lymph % (Auto) [place] % (Auto) Eos % (Auto) Baso % (Auto) Absolute Neuts (auto) Absolute Lymphs (auto) Absolute Monos (auto) Absolute Eos (auto) Absolute Basos (auto) Absolute Nucleated RBC Nucleated RBC % INR (Anticoag Therapy) Sodium Potassium Chloride Carbon Dioxide Anion Gap BUN Creatinine Est GFR ( Amer) Est GFR (Non-Af Amer) BUN/Creatinine Ratio Glucose Calcium Blood Type B Positive Antibody Screen Negative Crossmatch See Detail Assessment: Dysphagia, GERD s/p LAGB in , 2008. Improved with hydration and NPO status. Chronic MYA being transfused. She should have her LAGB removed as she is having recurrent issues despite no fluid in the band. Plan: Will keep NPO. PPI. Possible OR early next week for removal LAP-BAND.
[2018-04-20] MEDS ORDERED: Thiamine IV 100 MG, Folic Acid IV* 1 MG, Multiple Vitamin IV ADULT* 10 ML in D5NS 0.9% ... IV ONE (11:19)
[2018-04-20 11:30] LABS: Corrected Retic Count 0.6 % (0.5-1.5); Hematocrit for Retic CNT 21 % (35-47); Immature Retic Fraction 0.24; RBC Retic Count 3.32 10^6/ul (4.6-6.2)
[2018-04-20] MEDS: PROCHLORPERAZINE INJ 5 MG/ML 2 ML VIAL IV PRN (12:47)
--- NOTE | 2018-04-20 14:09 | PN ---
Progress Note - Progress Note Date of Service: 04/20/18 - Gastroenterology Note: Patient seen and examined. No new overnight issues. Emesis has improved. Still nauseated. Feels a little better after full night's sleep. Abdominal pain slightly better. No fevers/chills. No bowel movement yet. Receiving one unit of prbcs this am due to low hemoglobin. Vital Signs: Temp Pulse Resp BP Pulse Ox 97.9 F 55 16 96/52 97 04/20/18 13:19 04/20/18 13:19 04/20/18 13:19 04/20/18 13:19 04/20/18 13:19 Physical Examination: General: AAOx3. NAD. Less pale today. Abdomen: Soft. Non-tender. Non-distended. +BS. Laboratory Results - last 24 hr 04/20/18 04/20/18 04/20/18 06:02 06:02 06:02 WBC 3.6 RBC 3.35 L RBC (Retic) Hgb 6.4 L* Hct 21 L HCT (Retic) MCV 62 L MCH 19 L MCHC 31 RDW 18 H Plt Count 270 MPV 8.4 Neut % (Auto) 49.1 Lymph % (Auto) 37.9 Lamar % (Auto) 7.5 H Eos % (Auto) 4.8 Baso % (Auto) 0.7 Absolute Neuts (auto) 1.8 Absolute Lymphs (auto) 1.4 Absolute Monos (auto) 0.3 Absolute Eos (auto) 0.2 Absolute Basos (auto) 0 Absolute Nucleated RBC 0 Nucleated RBC % 0 Retic Count, Calc Corrected Retic Count Retic Shift Factor Retic Production Index Immature Retic Fraction Mean Retic Volume INR (Anticoag Therapy) 1.18 H Sodium 139 Potassium 3.6 Chloride 113 H Carbon Dioxide 23 Anion Gap 3 BUN 5 L Creatinine 0.39 L Est GFR ( Amer) 225.0 Est GFR (Non-Af Amer) 186.0 BUN/Creatinine Ratio 12.8 Glucose 85 Calcium 7.6 L Iron < 15 L TIBC 326 % Saturation 5 L Unsat Iron Binding [phone] Transferrin 233 Ferritin 2.9 L Blood Type Antibody Screen Crossmatch 04/20/18 04/20/18 06:02 07:05 WBC RBC RBC (Retic) 3.32 L Hgb 6.4 L* Hct 21 L HCT (Retic) 21 L MCV MCH MCHC RDW Plt Count MPV Neut % (Auto) Lymph % (Auto) Lamar % (Auto) Eos % (Auto) Baso % (Auto) Absolute Neuts (auto) Absolute Lymphs (auto) Absolute Monos (auto) Absolute Eos (auto) Absolute Basos (auto) Absolute Nucleated RBC Nucleated RBC % Retic Count, Calc 1.3 Corrected Retic Count 0.6 Retic Shift Factor 2.0 Retic Production Index 0.30 Immature Retic Fraction 0.24 Mean Retic Volume 93.3 INR (Anticoag Therapy) Sodium Potassium Chloride Carbon Dioxide Anion Gap BUN Creatinine Est GFR ( Amer) Est GFR (Non-Af Amer) BUN/Creatinine Ratio Glucose Calcium Iron TIBC % Saturation Unsat Iron Binding Transferrin Ferritin Blood Type B Positive Antibody Screen Negative Crossmatch See Detail A/P: 38 yo female s/p gastric Lap-band 9 years ago and GERD who presented with abdominal pain and intractable nausea/emesis. EGD yesterday showed severe distal esophagitis and narrowing from gastric Lap-band creating a tight hernia- type sac in the gastric cardia. Surgery is following for possible Lap-band removal early next week since symptoms persist despite removing all the fluid from Lap-band. 1. Intractable nausea/emesis ~Improving. ~PPI BID for 6 weeks, then may decrease to once daily. ~May add carafate BID once able to tolerate oral intake if symptoms persist. ~Bx from EGD pending. Clotest was negative for H.pylori. ~Will need to see GI as outpatient for repeat EGD to ensure healing of esophagitis. 2. Gastric Lap-band ~Surgery following. ~Planning to remove Lap-band early next week. 3. Iron-deficiency Anemia ~Transfusing one prbcs today. ~Follow hgb. Please call with any further issues or concerns. Ce Son D.O.
[2018-04-21] MEDS: NS 0.9% 1000 ML* 1,000 ML IV SCH ×2 (00:43→18:26)
[2018-04-21 05:35] LABS: ABS Basophils 0 10^3/ul (0-0.2); ABS Eosinophils 0.2 10^3/ul (0-0.6); ABS Lymphocytes 1.7 10^3/ul (1.0-4.8); ABS Monocytes 0.3 10^3/ul (0-0.8); ABS Neutrophils 1.6 10^3/ul (1.5-7.7); ABS Nucleated RBC 0 10^3/ul; Eosinophil % 6.1 % (0-6); Hematocrit 24 % (35-47); Hemoglobin 7.3 g/dl (12.0-16.0); Lymphocyte % 43.1 % (25-47); Mean Corpuscular HGB Conc 31 g/dl (31-36); Mean Corpuscular Hemoglobin 20 pg (27-31); Mean Corpuscular Volume 65 fL (80-97); Mean Platelet Volume 8.4 um3 (7.4-10.4); Nucleated Red Blood Cells % 0; Platelet Count 283 10^3/ul (150-450); Red Blood Count 3.69 10^6/ul (4.00-5.40); Red Cell Distribution Width 20 % (10.5-15); White Blood Count 3.9 10^3/ul (3.5-10.8)
[2018-04-21 05:49] LABS: EGFR Non-African American 175.5 (>60)
[2018-04-21] MEDS: HYDROmorphone INJ* 0.5 MG/0.5 ML SYRINGE IV SLOW PU PRN ×3 (07:23→19:27)
[2018-04-21] MEDS: Pantoprazole IV* 40 MG IV SCH ×2 (07:26→21:13)
[2018-04-21] MEDS: Ondansetron INJ* 2 MG/ML VIAL IV PRN ×3 (07:31→19:27)
[2018-04-21] MEDS ORDERED: Magnesium Sulfate IV* 2 GM in NS 0.9% 100 ML* 100 ML IV ONE (08:03)
--- NOTE | 2018-04-21 08:15 | PN ---
Progress Note - Progress Note Date of Service: 04/21/18 SOAP: Subjective: Mid abdominal pain and nausea again last night. No emesis. Objective: Vital Signs Temp 98.1 F 04/21/18 07:09 Pulse 75 04/21/18 07:09 Resp 20 04/21/18 07:23 BP 120/68 04/21/18 07:09 Pulse Ox 99 04/21/18 07:09 Gen: NAD Abd: Soft, NT; port palpable in epigastrium. Intake & Output 04/20/18 04/21/18 04/21/18 18:59 06:59 18:59 Intake Total 685 1335 Output Total 900 700 Balance -215 635 Intake: IV Fluids 685 330 NS 685 330 IVPB 1005 Thiamine 1005 Oral 0 0 Output: Urine 900 700 Laboratory Results - last 24 hr 04/20/18 04/20/18 04/20/18 06:02 06:02 07:05 WBC RBC RBC (Retic) 3.32 L Hgb 6.4 L* Hct 21 L HCT (Retic) 21 L MCV MCH MCHC RDW Plt Count MPV Neut % (Auto) Lymph % (Auto) [place] % (Auto) Eos % (Auto) Baso % (Auto) Absolute Neuts (auto) Absolute Lymphs (auto) Absolute Monos (auto) Absolute Eos (auto) Absolute Basos (auto) Absolute Nucleated RBC Nucleated RBC % Retic Count, Calc 1.3 Corrected Retic Count 0.6 Retic Shift Factor 2.0 Retic Production Index 0.30 Immature Retic Fraction 0.24 Mean Retic Volume 93.3 Sodium 139 Potassium 3.6 Chloride 113 H Carbon Dioxide 23 Anion Gap 3 BUN 5 L Creatinine 0.39 L Est GFR ( Amer) 225.0 Est GFR (Non-Af Amer) 186.0 BUN/Creatinine Ratio 12.8 Glucose 85 Calcium 7.6 L Phosphorus Magnesium Iron < 15 L TIBC 326 % Saturation 5 L Unsat Iron Binding [phone] Transferrin 233 Ferritin 2.9 L Blood Type B Positive Antibody Screen Negative Crossmatch See Detail 04/21/18 04/21/18 04:56 04:56 WBC 3.9 RBC 3.69 L RBC (Retic) Hgb 7.3 L Hct 24 L HCT (Retic) MCV 65 L MCH 20 L MCHC 31 RDW 20 H Plt Count 283 MPV 8.4 Neut % (Auto) 41.7 Lymph % (Auto) 43.1 [place] % (Auto) 8.3 H Eos % (Auto) 6.1 H Baso % (Auto) 0.8 Absolute Neuts (auto) 1.6 Absolute Lymphs (auto) 1.7 Absolute Monos (auto) 0.3 Absolute Eos (auto) 0.2 Absolute Basos (auto) 0 Absolute Nucleated RBC 0 Nucleated RBC % 0 Retic Count, Calc Corrected Retic Count Retic Shift Factor Retic Production Index Immature Retic Fraction Mean Retic Volume Sodium 139 Potassium 3.3 L Chloride 111 Carbon Dioxide 25 Anion Gap 3 BUN 3 L Creatinine 0.41 L Est GFR ( Amer) 212.4 Est GFR (Non-Af Amer) 175.5 BUN/Creatinine Ratio 7.3 L Glucose 74 Calcium 7.6 L Phosphorus 2.4 L Magnesium 1.6 L Iron TIBC % Saturation Unsat Iron Binding Transferrin Ferritin Blood Type Antibody Screen Crossmatch Assessment: Dysphagia, GERD s/p LAGB in , 2008. Improved with hydration and NPO status. Chronic MYA responded to txfn. She should have her LAGB removed as she is having recurrent issues despite no fluid in the band. Electrolyte abnormalities. Plan: Replete electrolytes. Sips. OR tomorrow AM with Dr. Giles for removal of LAGB. D/w patient who understands and agrees.
[2018-04-21] MEDS ORDERED: NS 0.9% 100 ML* 100 ML ONE (08:24)
[2018-04-21] MEDS ORDERED: Sodium Phosphate INJ* 15 MMOLE in NS 0.9% 250 ML* 250 ML IVPB ONE (08:30)
[2018-04-21] MEDS ORDERED: Magnesium Sulfate 2 GM IV* 2 GM/50 ML BAG IVPB ONE (08:30)
[2018-04-21] MEDS ORDERED: Acetaminophen TAB* 325 MG PO PRN (21:13)
[2018-04-21] MEDS: PROCHLORPERAZINE INJ 5 MG/ML 2 ML VIAL IV PRN (22:50)
[2018-04-22] MEDS: HYDROmorphone INJ* 0.5 MG/0.5 ML SYRINGE IV SLOW PU PRN (00:06)
[2018-04-22] MEDS: NS 0.9% 1000 ML* 1,000 ML IV SCH ×2 (02:25→19:39)
[2018-04-22] MEDS ORDERED: Midazolam* 1 MG/ML 2 ML VIAL (2 MG) ONE (09:02)
[2018-04-22] MEDS ORDERED: fentaNYL* 50 MCG/ML 2 ML VIAL (100 MCG VIAL) ONE (09:02)
[2018-04-22] MEDS ORDERED: Rocuronium* 10 MG/ML VIAL ONE ×2 (09:06→10:54)
[2018-04-22] MEDS ORDERED: Propofol* 10 MG/ML 20 ML BTL IV PUSH ONE (09:06)
[2018-04-22] MEDS ORDERED: Bupivacaine 0.25% W/EPI* 10 ML SDV ONE (09:17)
[2018-04-22] MEDS: Pantoprazole IV* 40 MG IV SCH ×2 (09:35→21:25)
[2018-04-22] MEDS ORDERED: ceFAZolin 2 GM PREMIX (*) 2 GM/50 ML BAG IVPB ONE (09:42)
[2018-04-22] MEDS ORDERED: Naloxone* 0.4 MG/ML 1 ML VIAL IV PRN (11:00)
[2018-04-22] MEDS ORDERED: DiMENhydriNATE IV* 50 MG/ML VIAL IV PUSH PRN (11:00)
[2018-04-22] MEDS ORDERED: Acetaminophen IV 1GM/100ML * 1,000 MG/100 ML VIAL IVPB ONE (11:00)
[2018-04-22] MEDS ORDERED: Ondansetron INJ* 2 MG/ML VIAL ONE (12:00)
[2018-04-22] MEDS ORDERED: Metoclopramide IV* 5 MG/ML 2 ML VIAL ONE (12:00)
[2018-04-22] MEDS ORDERED: Neostigmine Methylsulfate* 1 MG/ML 10 ML VIAL (1 mg/ml) ONE (12:00)
[2018-04-22] MEDS ORDERED: Glycopyrrolate IV* 0.2 MG/ML 1 ML VIAL ONE (12:00)
[2018-04-22] MEDS ORDERED: Dexamethasone IV* 4 MG/ML 1 ML (4 MG) ONE (12:00)
--- NOTE | 2018-04-22 12:16 | BRIEFOPN ---
Brief Operative Note - Surgery Procedures: Pre-OP Diagnoses: slipped lapBand Post-op Diagnosis: same Procedure: Diagnostic laparoscopy, removal of lapband and port Surgeon: Tisha Asst: none Anethesia: GETA EBL: minimal IVF: crystalloid Specimen: lap band and port Drains: none
[2018-04-22] MEDS ORDERED: Acetaminophen IV 1GM/100ML * 100 ML ONE (12:25)
[2018-04-22] MEDS ORDERED: HYDROmorphone INJ* 0.5 MG/0.5 ML SYRINGE ONE ×2 (12:25→12:45)
[2018-04-22] MEDS: HYDROmorphone INJ* 0.5 MG/0.5 ML SYRINGE IV PRN ×5 (12:26→13:22)
--- NOTE | 2018-04-22 12:59 | PN ---
CC: [facility]. PROGRESS NOTE: DATE OF VISIT: 04/22/18. Ms. Andrade is a female admitted to the Hospitalist service, consult to surgery and bariatric surgery fo r what appears to be a slipped laparoscopic adjustable gastric banding. Her chart was reviewed as we ll as the images. I discussed with her and her and agreed with the recommendation of removal of lap band and port. The patient is approximately 7 years status post lap band placement in [place]. She lost about 166 po unds, had intermittent issues since that have included anemia and at times vomiting and abdominal ema n. She was told by her bariatric doctor that lap band was emptied at last check and that there was n o reason to remove it all together. Since presenting to our hospital, additional 1 cc was removed an d the patient has been followed and also underwent an EGD. This report was reviewed. PHYSICAL EXAM: The patient's abdomen is soft, nondistended, nontender. Port is palpable. There is n o hernia noted. IMPRESSION: Symptomatic and slipped laparoscopic adjustable gastric banding. Recommendation is for d iagnostic laparoscopy and removal of lap band with port. I outlined the details of the procedure hernáni ng over the risks, benefits and alternatives and the patient agrees. I discussed the possible compli cations, which included, but not limited to bleeding, infection, gastric leak, need for additional pr ocedures, need for prolonged hospitalization and antibiotics, the potential for weight regain and the need for additional surgeries regarding the patient's possible hiatal hernia. I discussed that I wo uld not fix hiatal hernia at this time. We would do our best to remove all stitches that may have be en placed by the original surgeon to keep the band in place. The patient's questions were answered a nd we will bring her to the operating room. [id number]/[facility] #: [id number]
[2018-04-22] MEDS ORDERED: Ketorolac INJ* 30 MG/ML 1 ML VIAL ONE (13:08)
[2018-04-22] MEDS: Metoclopramide TAB* 10 MG PO SCH ×2 (14:39→21:26)
[2018-04-22] MEDS: PROCHLORPERAZINE INJ 5 MG/ML 2 ML VIAL IV PRN (15:33)
[2018-04-22] MEDS: Morphine INJ* 2 MG/ML 1 ML SYRINGE (TWO MG - NEW SYRINGE VERSION) IV PRN ×2 (15:34→21:28)
--- NOTE | 2018-04-22 22:17 | OP ---
Amended report to correct date of operation. CC: [facility]; Lavonne Mcfadden [place], [place], phone number [phone]; Dr. Son* OPERATIVE REPORT: DATE OF OPERATION: 04/22/18 - Inpatient, room [facility]- DATE OF : 84 SURGEON: Ángel Giles MD LEATHER DRIER: Michael Gunn MD ANESTHESIOLOGIST: Lavonne Lyons DO ANESTHESIA: General anesthesia. PRE-OP DIAGNOSIS: Symptomatic slipped laparoscopic adjustable gastric banding. POST-OP DIAGNOSIS: Symptomatic slipped laparoscopic adjustable gastric banding. OPERATIVE PROCEDURE: Diagnostic laparoscopy and removal of Lap-Band and port. ESTIMATED BLOOD LOSS: Minimal. FLUIDS: Minimal crystalloid fluid given. SPECIMENS: Lap-Band and port. DRAINS: None. DESCRIPTION OF PROCEDURE: The patient was identified in the preoperative area. I discussed the case with her. Consent was signed. I marked her belly. She was brought to the operating room, placed on the operating table in supine position. Preoperative antibiotics were given. Sequential devices were placed on the bilateral lower extremities. General anesthesia was induced. Sequential device on the left lower extremity was removed and an IV placed at the foot on the left. The patient's abdomen was prepped and draped in a standard surgical fashion and time- out was performed. I dissected on top of the Lap-Band port site. This was dissected into the capsule of the port and the port was cut from its sutures and removed and allowed to hang from the abdomen. Next, a Veress needle was inserted through this site and the abdomen was allowed to fill to a pressure of 15 mmHg. Next, a 5-mm trocar was inserted in the upper midline. A laparoscope was inserted through this. There was no evidence of an injury from the trocar insertion or from the Veress needle. Veress needle removed and a 12-mm trocar inserted at the right upper quadrant, two 5 mm at the left upper quadrant was carried out. Next, review of the abdomen showed scant free fluid. The small bowel appeared intact. Stomach was distended with air and an OG tube was placed by Anesthesia and this easily collapsed. Gallbladder was distended, but appeared intact. Liver was within normal limits. Next, a liver retractor was inserted through a subxiphoid incision. We placed this retractor up towards the scarring of the stomach to the liver edge. Next, with sharp dissection, we were able to free up this portion of the stomach from the liver edge and reapproximate the retractor as need be. Capsule was cut at the side of the buckle of the Lap-Band. Additional dissection was carried out over the Lap-Band cutting through 3 sutures and allowing the fundus of the stomach to unfurl from the top portion of the stomach. We did see a significant amount of stomach above the band. Additional dissection was carried out at the liver edge and retractor shifted again. A small hiatal hernia anteriorly was identified. Next, the buckle of the Lap-Band was taken down and cut off. The portion of the buckle that was cut was removed under direct vision and passed off. We then were able to take the Lap-Band from behind the stomach and pull this through at the previous dissection site at the port site. We cut this through almost to the abdominal wall, cut the tubing and passed this off as specimen. Next, the Lap-Band was then brought out through the 12-mm trocar site and passed off as specimen. Liver retractor was placed back to neutral. Hemostasis was excellent. The stomach appeared intact and there was no evidence of gastric contents. The table was repositioned back to neutral. Abdomen was allowed to collapse. Trocars were removed under direct vision and all 5 skin incisions were reapproximated with 4-0 Monocryl subcuticular sutures followed by Steri-Strips and sterile dressing. [id number]/[facility] #: [id number] LEAH
[2018-04-23] MEDS: Morphine INJ* 2 MG/ML 1 ML SYRINGE (TWO MG - NEW SYRINGE VERSION) IV PRN (03:24)
[2018-04-23] MEDS: NS 0.9% 1000 ML* 1,000 ML IV SCH ×2 (03:29→11:23)
[2018-04-23] MEDS: Metoclopramide TAB* 10 MG PO SCH ×2 (04:57→13:09)
[2018-04-23] MEDS: Pantoprazole IV* 40 MG IV SCH (07:33)
[2018-04-23] MEDS: oxyCODONE/Acetamin 5/325 MG* TAB PO PRN ×2 (07:33→13:14)
[2018-04-23 11:25] VITALS: BP 99/55
--- NOTE | 2018-04-23 21:49 | DS ---
CC: [facility]; CHANTELL Morales, phone # [phone] nicol kaur [place] DISCHARGE SUMMARY: DATE OF ADMISSION: 04/20/18 DATE OF DISCHARGE: 04/23/18 HOSPITAL COURSE: Ms. Andrade is a 38-year-old female who was admitted to the hospital service on with diagnoses of nausea, abdominal pain and was worked up, which included an EGD and noted to hav e a hiatal hernia. The patient is status post lap band 7 years ago. The concern was that the band h ad slipped and this became symptomatic. The patient had been seen by my partner and case discussed w [facility] bariatric surgeon, Dr. Becker as well. Recommendation after readmission and the workup as descr ibed above was for removal of the lap band including the port. I met the patient on the day of procedure. I described to her and her my recommendations of removing the symptomatic lap band that seemed to have slipped. The patient was agreeable and signed c onsent, was taken to the operating room. Please see operative report for separate details. Briefly, lap band and port were removed. Diagnostic laparoscopy performed. The patient's postoperative course was uneventful. Pain is controlled with minimal narcotic. The pa rai states that she does have mild abdominal pain, but no longer has the GI upset that she has been dealing with. I discussed with her my concern of weight regain. We also discussed the possibility of injury to intraabdominal organs . The patient is aware of this. Her questions were answere d and the patient is ready for discharge on postoperative day 1. PHYSICAL EXAMINATION: Physical exam was performed on postoperative day 1. The patient was afebrile. Vital signs were stable. Blood pressure 99/55 with a heart rate of 60. Urine output good. Alert and oriented x3. No apparent distress. Head, Eyes, Ears, Nose, and Throat: Normocephalic, atraumati c. Sclerae anicteric. Mucous membranes are moist. Lungs: Clear to auscultation bilaterally. Abdom en: Soft, nondistended. Minimal incisional tenderness. Dressing is clean, dry, and intact. Extremi ties within normal limits with no calf tenderness. IMPRESSION: Status post lap band and port removal. PLAN: Plan is for followup at [facility]. The patient has bee n given directions for removal of dressings tomorrow. She can shower. I would like to see her in my office, but I do understand as she goes back to [place] that she could follow up with her primary ca re doctor or bariatric group. She is aware that weight regain is a concern at this point. The patie nt's questions were answered and she is discharged. [id number]/[facility] #: [id number]
== END 2018-04-23 13:35 | disposition home or self-care (01) | DRG 989 ==
LOC: ED 06:26 → SSU 12:24 → OBSVTOIN 04-20 10:25
PROVIDERS: ADMIT Internal Medicine; ATTEND Surgery
PROC: 0DB58ZX Excision of Esophagus, Via Natural or Artificial Opening Endoscopic, Diagnostic (ICD-10-PCS; 2018-04-19)
PROC: 0DB68ZX Excision of Stomach, Via Natural or Artificial Opening Endoscopic, Diagnostic (ICD-10-PCS; 2018-04-19)
PROC: 30233N1 Transfusion of Nonautologous Red Blood Cells into Peripheral Vein, Percutaneous Approach (ICD-10-PCS; 2018-04-20)
PROC: 0DP64CZ Removal of Extraluminal Device from Stomach, Percutaneous Endoscopic Approach (ICD-10-PCS; principal; 2018-04-22 10:00)
DX: T85.528A Displacement of other gastrointestinal prosthetic devices, implants and grafts, initial encounter (principal); E83.42 Hypomagnesemia; R13.10 Dysphagia, unspecified; X58.XXXA Exposure to other specified factors, initial encounter; Z98.84 Bariatric surgery status; K44.9 Diaphragmatic hernia without obstruction or gangrene; K21.9 Gastro-esophageal reflux disease without esophagitis; E87.6 Hypokalemia; E86.0 Dehydration; K20.8 Other esophagitis; R11.2 Nausea with vomiting, unspecified; D50.9 Iron deficiency anemia, unspecified; E86.1 Hypovolemia; K29.70 Gastritis, unspecified, without bleeding; Z83.3 Family history of diabetes mellitus
CPT/HCPCS: 36415; 43774; 80048; 80053; 82728; 83540; 83550; 83605; 83690; 83735; 84100; 84702; 85014; 85018; 85025; 85045; 85610; 86140; 86850; 86900; 86901; 86922; 87077; 88300; 88305; 88312; 99156; 99157; 99284; A9270-GY; G0378; J0690; J0780; J1100; J1170; J1885; J2250; J2270; J2405; J2704; J2710; J2765; J3010; J3411; J3475; J3480; P9040